=== PATIENT | female | born 1990 | race Caucasian/White ===

== ENCOUNTER → 2019-12-19 | Outpatient (CLI) | payer OTHER ==
[2019-12-20 05:55] LABS: RUBELLA AB IGG-REFLAB 1.12 index (Immune >0.99); RUBEOLA (MEASLES) IGG 63.6 AU/mL (Immune >16.4)
== END | disposition home or self-care (01) ==
LOC: PUC 12:46
DX: Z02.1 Encounter for pre-employment examination (principal)
CPT/HCPCS: 86706; 86735; 86762; 86765; 86787

== ENCOUNTER 2020-04-12 12:41 | Emergency (ER) | payer OTHER ==
[~2020-04-12] VITALS: Ht 167.6 cm; Wt 65.9 kg
[2020-04-12 12:43] VITALS: BP 129/83
== END 2020-04-12 15:12 | disposition home or self-care (01) ==
LOC: EMS 12:48
DX: J02.8 Acute pharyngitis due to other specified organisms (principal); M79.10 Myalgia, unspecified site; Z20.828 Contact with and (suspected) exposure to other viral communicable diseases
CPT/HCPCS: 99283; U0003

== ENCOUNTER → 2020-07-08 | Outpatient (CLI) | payer OTHER | END | disposition home or self-care (01) | LOC: EMS 15:44 | DX: Z20.828 Contact with and (suspected) exposure to other viral communicable diseases (principal) | CPT/HCPCS: U0003 ==